=== PATIENT | female | born 1995 ===

== ENCOUNTER 2020-02-03 11:29 | Outpatient (CLI) | payer OTHER, SELFPAY ==
--- NOTE | ~2020-02-03 | US_ITS ---
EXAMINATION: US pelvic complete DATE: 02/03/2020 11:55 INDICATION: Menorrhagia Comparison:No prior studies for comparison. TECHNIQUE: Multiple transabdominal and endovaginal sonographic images of the pelvis performed. FINDINGS: The uterus measures 6.6 x 3.5 x 4.2 cm. The endometrial complex measures 8 mm. The right ovary measures 3.3 x 2.3 x 2.9 cm and the left ovary measures 3.1 x 1.8 x 3.7 cm. There ar e small follicles in each ovary. There is no free fluid in the pelvis. There are no abnormal masses seen on either side. IMPRESSION: 1. Normal pelvic ultrasound. Reviewed, dictated and finalized at location A.
== END 2020-02-03 11:30 ==
PROVIDERS: Visit Provider Obstetrics & Gynecology Gynecology
DX: N92.0 Excessive and frequent menstruation with regular cycle (principal)
CPT/HCPCS: 76856